=== PATIENT | male | born 1945 | race Caucasian/White ===

== ENCOUNTER 2018-01-23 09:42 | Observation (INO) ==
[2018-01-23] MEDS ORDERED: Vancomycin 1,000 MG VIAL IVPB ONE ×2 (09:59→12:19)
[2018-01-23] MEDS ORDERED: Clindamycin 900 MG/50 ML 900 MG/50 ML IV.SOLN IVPB ONE ×2 (10:03→12:19)
--- NOTE | 2018-01-23 10:07 | Emergency Department Note ---
Disposition Clinical Impression: Cellulitis Qualifiers: Site of cellulitis: extremity Site of cellulitis of extremity: lower extremity Laterality: right Qualified Code(s): L03.115 - Cellulitis of right lower limb Disposition: Admitted As Inpatient Condition: Fair Referrals: NONE,PCP [Primary Care Provider] - Forms: ED Satisfaction Letter, Work/School Release Time of Disposition: 10:10 (Dr Ascencio) Skin/Abscess/FB HPI Chief complaint: ED General Medical Stated complaint: redness to lt leg Time Seen by Provider: 01/23/18 09:50 Source: patient Mode of arrival: ambulatory Limitations: no limitations Nursing Notes Reviewed: Yes Vital Signs Reviewed: Yes Pt Subjective Complaint: rash Onset (ago): day(s) (2) Tetanus Up to Date: yes Location: RLE Severity: severe Severity scale (1-10): 7 Quality: aching Consistency: constant, Worsening Improves with: none Worsens with: none Context: other (The patient is currently staying in [facility] from [place] for the summer. He states that he has been relatively active in the last couple of days walking around with no issues. He noted increasing redness from the anterior medial aspect of the upper leg and gradually spread this morning. The area is red and slightly painful to touch. Patient denies any associated fever, calf pain, groin pain, back pain, chills, shortness of breath, palpitations or dizziness. There is no associated mental status changes according to . He denies any similar complaints the past or history of DVT and currently not on any anticoagulants. The patient denies any recent long travel or traumatic injury to the right lower extremity.) Associated symptoms: Reports: shortness of breath. Denies: rigors, itching, nausea, vomiting, malaise, arthralgias, cough Treatments prior to arrival: none Home Medications Medication Instructions Recorded Confirmed Aspirin [Lo-Dose Aspirin EC] 81 mg PO DAILY 01/23/18 01/23/18 Gabapentin [Neurontin] 300 mg PO BID 01/23/18 01/23/18 Hydrochlorothiazide [Microzide] 12.5 mg PO DAILY 01/23/18 01/23/18 Lisinopril [Zestril] 20 mg PO DAILY 01/23/18 01/23/18 Metoprolol [Lopressor] 50 mg PO DAILY 01/23/18 01/23/18 Nitroglycerin [Nitrostat] 0.4 mg SL PRN 01/23/18 01/23/18 Pantoprazole Sodium 40 mg PO DAILY 01/23/18 01/23/18 Simvastatin [Zocor] 20 mg PO HS 01/23/18 01/23/18 amLODIPine [Norvasc] 5 mg PO DAILY 01/23/18 01/23/18 Allergies Allergy/AdvReac Type Severity Reaction Status Date / Time No Known Allergies Allergy Verified 01/23/18 09:43 All systems ED: reviewed and negative except as stated. Review of Systems: As Per HPI Past Medical History - Past Medical History Medical history: Reports: hyperlipidemia, hypertension Psychiatric history: Reports: no psych history - Social History Smoking Status: Former smoker Alcohol use: Reports: none Drug use: Reports: none Physical Exam - General Limitations: no limitations General appearance: alert - Head Head exam: atraumatic, normocephalic, normal inspection - Eye Eye exam: Present: normal appearance, PERRL, EOMI - Chest Chest inspection: Present: normal inspection, symmetric chest wall rise - Cardiovascular Cardiovascular exam: Present: regular rate, normal rhythm, normal heart sounds - Abdominal Exam Abdominal exam: Present: soft, Non-Tender. Absent: tenderness, distention, guarding, rebound, rigidity - Expanded Lower Extremity Exam Hip/Pelvis exam: Present: normal inspection, full ROM Upper leg exam: Present: normal inspection, full ROM Knee exam: Present: normal inspection, full ROM. Absent: tenderness, swelling Lower leg exam: Present: full ROM, tenderness, erythema (Stenstrom the anterior and posterior proximal tib-fib area extending into the distal anterior and posterior tib-fib area), Achilles tendon intact, other (Negative Nikolsky sign) . Absent: palpable cord, Homans' sign Ankle exam: Present: normal inspection, full ROM Foot/toe exam: Present: normal inspection, full ROM Neurovascular/Tendon exam: Absent: motor deficit, sensory deficit, tendon deficit - Back Exam Back exam: Present: normal inspection, full ROM. Absent: tenderness - Neurological Exam Neurological exam: Present: alert, oriented X3, CN II-XII intact, other ( Patient is using a 4 wheeled walker) - Psychiatric Psychiatric exam: Present: normal affect, normal mood - Skin Skin exam: Present: warm, dry, intact, rash - Expanded Skin Exam Type of lesion: Present: rash Distribution: RLE Description: Present: tenderness, erythematous, indurated. Absent: vesicular, blisters, bullous, petechial, purpuric, crusting, fluctuant Course Vital Signs Temperature 97.8 F 01/23/18 09:44 Pulse Rate 71 01/23/18 09:44 Respiratory Rate 18 01/23/18 09:44 Blood Pressure 126/68 01/23/18 09:44 O2 Sat by Pulse Oximetry 97 01/23/18 09:44 Temperature 97.8 F 01/23/18 09:44 Pulse Rate 73 01/23/18 11:00 Respiratory Rate 18 01/23/18 11:00 Blood Pressure 130/86 01/23/18 11:00 O2 Sat by Pulse Oximetry 97 01/23/18 11:00 Oxygen Delivery Oxygen Delivery Room Air Skin/Abscess/Foreign Body - MDM Narrative Medical decision making narrative: No clinical suspicion for acute necrotizing fasciitis or DVT of the right lower extremity. The patient might have progressive cellulitis which will be treated with IV clindamycin and vancomycin. Patient is amenable for inpatient admission for 24 hours or IV antibiotic infusion and observation. - Differential Diagnosis Likely: abscess of skin or subcutaneous tissue, viral exanthem, cellulitis - Medical Records Medical records reviewed: Yes I reviewed the patient's medical records. - Lab Data Lab results reviewed: Yes I reviewed the patient's lab results. Result diagrams: 01/23/18 10:35 01/23/18 10:35 Lab Results 01/23/18 01/23/18 Range/Units 10:35 10:35 WBC 14.6 H (4.3-11.1) K/mcL RBC 4.11 L (4.19-5.50) M/mcL Hgb 12.4 L (12.9-16.9) g/dL Hct 36.8 L (37.5-50.1) % MCV 89.5 (83.0-100.0) fL MCH 30.2 (28.0-33.3) pg MCHC 33.7 (31.6-35.5) g/dL RDW 13.2 (11.5-14.5) % Plt Count 251 (140-400) K/mcL MPV 10.1 (9.4-12.4) fL Immature Gran % 0.7 (0-4) % Seg Neutrophils % 72.1 % Lymphocytes % 15.1 % Monocytes % 11.6 % Eosinophils % 0.2 % Basophils % 0.3 % Neutrophils # 10.5 H (1.6-8.9) K/mcL Lymphocytes # 2.2 (0.6-4.6) K/mcL Monocytes # 1.7 H (0.0-1.3) K/mcL Eosinophils # 0.0 (0.0-0.6) K/mcL Basophils # 0.0 (0.0-0.2) K/mcL Sodium 135 L (136-145) mEq/L Potassium 3.6 (3.5-5.1) mEq/L Chloride 97 L (98-107) mEq/L Carbon Dioxide 25 (23-29) mEq/L BUN 38 H (8-23) mg/dL Creatinine 1.70 H (0.70-1.30) mg/dL Est GFR ( Amer) 48 L (> 60) Est GFR (Non-Af Amer) 40 L (> 60) BUN/Creatinine Ratio 22 (6-26) Glucose 158 H (70-105) mg/dL Calculated Osmolality 292 (280-300) Calcium 9.2 (8.6-10.3) mg/dL Total Bilirubin 1.0 (0.3-1.0) mg/dL Direct Bilirubin 0.2 (0.0-0.2) mg/dL Indirect Bilirubin 0.8 (0.0-1.2) mg/dL AST 28 (13-39) Units/L ALT 24 (7-52) Units/L Alkaline Phosphatase 58 (34-104) Units/L Serum Total Protein 7.6 (6.4-8.9) g/dL Albumin 3.7 (3.5-5.7) g/dL Globulin 3.9 H (2.4-3.5) g/dL Albumin/Globulin Ratio 0.9 L (1.1-2.2) - Radiology Data Radiology results reviewed: Yes I reviewed the patient's radiology results.
[2018-01-23 10:48] LABS: Basophils % 0.3 %; Eosinophils % 0.2 %; Hematocrit 36.8 % (37.5-50.1); Hemoglobin 12.4 g/dL (12.9-16.9); Immature Granulocytes % 0.7 % (0-4); Lymphocytes # 2.2 K/mcL (0.6-4.6); Lymphocytes % 15.1 %; Mean Corpuscular HGB Conc 33.7 g/dL (31.6-35.5); Mean Corpuscular Hemoglobin 30.2 pg (28.0-33.3); Mean Corpuscular Volume 89.5 fL (83.0-100.0); Mean Platelet Volume 10.1 fL (9.4-12.4); Monocytes # 1.7 K/mcL (0.0-1.3); Monocytes % 11.6 %; Platelet Count 251 K/mcL (140-400); Red Blood Count 4.11 M/mcL (4.19-5.50); Red Cell Distribution Width 13.2 % (11.5-14.5); Segmented Neutrophils % 72.1 %
[2018-01-23 10:49] LABS: Neutrophils # 10.5 K/mcL (1.6-8.9)
[2018-01-23 11:04] LABS: Albumin 3.7 g/dL (3.5-5.7); Albumin/Globulin Ratio 0.9 (1.1-2.2); Bilirubin,Direct 0.2 mg/dL (0.0-0.2); Bilirubin,Indirect 0.8 mg/dL (0.0-1.2); Calcium 9.2 mg/dL (8.6-10.3); Globulin 3.9 g/dL (2.4-3.5); Potassium 3.6 mEq/L (3.5-5.1); Total Protein 7.6 g/dL (6.4-8.9)
[2018-01-23] MEDS ORDERED: 0.9 % Sodium Chloride 1,000 ML IVC SCH ×2 (11:15→12:19)
[2018-01-23] MEDS ORDERED: *HR* HYDROcodone/Acet 5/325 mg TABLET PO PRN (12:19)
[2018-01-23] MEDS ORDERED: Acetaminophen 325 MG TABLET PO PRN (12:19)
[2018-01-23] MEDS ORDERED: Naloxone 0.4 MG/ML INJ IVP PRN (12:19)
[2018-01-23] MEDS ORDERED: Ondansetron 4 MG/2 ML VIAL IVP PRN (12:19)
--- NOTE | 2018-01-23 15:46 | Internal Med History&Physical ---
Date of Encounter: 01/23/18 Time of Encounter: 15:00 Assessment and Plan (1) Cellulitis Current visit: Yes Status: Acute He was given clindamycin and vancomycin in emergency room. Will start Ancef 1 g IV every 8 hours with lactobacillus. Qualifiers: Site of cellulitis: extremity Site of cellulitis of extremity: lower extremity Laterality: right Qualified Code(s): L03.115 - Cellulitis of right lower limb (2) Anemia Current visit: Yes Status: Acute Order anemia testing in a.m. Hold aspirin. Qualifiers: Anemia type: unspecified type Qualified Code(s): D64.9 - Anemia, unspecified (3) Hypertension Current visit: Yes Status: Chronic Hold lisinopril and HCTZ. Continue amlodipine and metoprolol for now and monitor blood pressure. Qualifiers: Hypertension type: essential hypertension Qualified Code(s): I10 - Essential (primary) hypertension (4) Azotemia Current visit: Yes Status: Acute Duration unknown. Will hold HCTZ and lisinopril. Start IV fluids and monitor renal indices. (5) Hyperlipidemia Current visit: Yes Status: Acute Check lipid profile in a.m. Qualifiers: Hyperlipidemia type: unspecified Qualified Code(s): E78.5 - Hyperlipidemia , unspecified (6) DM type 2 (diabetes mellitus, type 2) Current visit: Yes Status: Acute Check hemoglobin A1c in a.m. Qualifiers: Diabetes mellitus custodial insulin use: without ferry terminal supervisor use Diabetes mellitus complication status: without complication Qualified Code(s): E11.9 - Type 2 diabetes mellitus without complications (7) Diabetic neuropathy Current visit: Yes Status: Chronic Check hemoglobin A1c in a.m. Continue gabapentin. Qualifiers: Diabetes mellitus type: type 2 Diabetes mellitus complication detail: with other neurological complication Qualified Code(s): E11.49 - Type 2 diabetes mellitus with other diabetic neurological complication Internal Medicine - H&P: HPI Chief complaint: Right leg redness Admitted From: Emergency Dept Plans for Post Hospital Care: Home History of present illness: Mr. Watt is a 72 year old male who came to emergency room stating he had onset of "soreness" in his right lower leg the previous day without visible changes. On awakening today he noticed redness in the leg with increased soreness. He came to emergency room and was evaluated and felt to have cellulitis. He was admitted to [facility] floor for ongoing care needs. He denies known trauma to his legs. He does not recall any insect bites. He denies fevers or chills. No other parts of his body have similar erythema and soreness. Past Med Surg Social Fam HX - Past Medical History Medical history: arthritis, hyperlipidemia, hypertension Psychiatric history: no psych history - Past Surgical History Additional surgical history: rt bicep tendon surg - Social History Smoking Status: Former smoker Alcohol use: none Drug use: none - Family History Mother Living Status: Hx Family Cardiac Disorders: Yes Internal Medicine - H&P: Meds Aspirin [Lo-Dose Aspirin EC] 81 mg PO DAILY 01/23/18 [History] Gabapentin [Neurontin] 300 mg PO BID 01/23/18 [History] Hydrochlorothiazide [Microzide] 12.5 mg PO DAILY 01/23/18 [History] Lisinopril [Zestril] 20 mg PO DAILY 01/23/18 [History] Metoprolol [Lopressor] 50 mg PO DAILY 01/23/18 [History] Nitroglycerin [Nitrostat] 0.4 mg SL PRN 01/23/18 [History] Pantoprazole Sodium 40 mg PO DAILY 01/23/18 [History] Simvastatin [Zocor] 20 mg PO HS 01/23/18 [History] amLODIPine [Norvasc] 5 mg PO DAILY 01/23/18 [History] 3 Allergy/AdvReac Type Severity Reaction Status Date / Time No Known Allergies Allergy Verified 01/23/18 09:43 All Systems PM: A 10-system review of systems was performed and is negative for pertinent findings except as documented above in the HPI. Review of systems: Gen.: He states his weight is stable the past few months Cardiovascular: He has history of hypertension but denies IA heart failure angina DVT or pulmonary embolus. He reports exercise stress test 2017 was negative for ischemia. Respiratory: He smoked from age [age] up to one and one half packs per day. He denies known chronic lung disease and does not use home oxygen. GI: Denies disorders of his liver gallbladder or exocrine pancreas : He has occasional BPH symptoms. He denies disorders of his kidney bladder or prostate otherwise Neurologic: He reports neuropathy in his feet possibly secondary to diabetes. He denies large distribution strokes or seizures. Endocrine: He has hyperlipidemia. He has history of DM 2 but no longer takes medication for this. He denies known thyroid disease. Hematology/oncology: He denies blood disorders or cancers. He was unaware he had anemia on labs in emergency room. Psychiatric: Denies anxiety depression or other mental health issues Musko skeletal: He has DJD. He has had left biceps tendon repair. He denies other bone joint or muscle disorders. - Constitutional Vitals: Temp Pulse Resp BP Pulse Ox 99.6 F 67 14 117/70 95 01/23/18 13:00 01/23/18 13:00 01/23/18 13:00 01/23/18 13:00 01/23/18 13:00 Exam: Gen.: He is a well-developed well-nourished male lying in bed and appears in no acute distress HEENT: Head is atraumatic and normocephalic. Eyes: EOMI. There is no scleral icterus. Mouth: Mucosa is moist. Neck: Supple and nontender. There is no thyromegaly or adenopathy noted. Heart: Regular without murmurs gallops or ectopics Lungs: No wheezes or crackles are heard. Abdomen: Soft and nontender. No masses or guarding are noted. Extremities: The right lower leg shows diffuse erythema from the lower patella area to the distal right lower leg just above the ankle. There is trace pitting edema present. The leg is slightly enlarged compared to the left leg and warmer to touch. No lymphangitic streaking is seen. The erythema has distinct borders. No puncture or bite reddy are seen. The left leg is unremarkable. Neurologic: Mental status: He is talkative and a good historian. Cranial nerves : Smile is symmetric. Forehead wrinkles bilaterally. Tongue protrudes midline. EOMI. Motor: There is no pronator drift. Cerebellar: Finger to nose is intact bilaterally. Skin: Warm and dry with right leg erythema as described above. Internal Med - H&P Results - Labs CBC & Chem 7: 01/23/18 10:35 01/23/18 10:35
[2018-01-23] MEDS: 0.45 % Sodium Chloride w/KCl 20 MEQ/1,000 ML MLS IVC SCH (16:37)
[2018-01-23] MEDS: ceFAZolin 1,000 MG in Water for inj. (sterile) 20 ML 10 ML IVP SCH (16:41)
[2018-01-23] MEDS: Lactobacillus 1 EACH CAP.SPRINK PO SCH (21:25)
[2018-01-23] MEDS: Gabapentin 300 MG CAPSULE PO SCH (21:25)
[2018-01-24] MEDS: ceFAZolin 1,000 MG in Water for inj. (sterile) 20 ML 10 ML IVP SCH ×3 (00:21→17:13)
[2018-01-24] MEDS: 0.45 % Sodium Chloride w/KCl 20 MEQ/1,000 ML MLS IVC SCH ×3 (03:23→23:01)
[2018-01-24 06:07] LABS: Basophils # 0.1 K/mcL (0.0-0.2); Basophils % 0.4 %; Eosinophils # 0.1 K/mcL (0.0-0.6); Eosinophils % 0.6 %; Hematocrit 32.8 % (37.5-50.1); Hemoglobin 11.1 g/dL (12.9-16.9); Immature Granulocytes % 0.7 % (0-4); Lymphocytes # 1.9 K/mcL (0.6-4.6); Lymphocytes % 15.8 %; Mean Corpuscular HGB Conc 33.8 g/dL (31.6-35.5); Mean Corpuscular Hemoglobin 30.5 pg (28.0-33.3); Mean Corpuscular Volume 90.1 fL (83.0-100.0); Monocytes # 1.6 K/mcL (0.0-1.3); Neutrophils # 8.5 K/mcL (1.6-8.9); Platelet Count 226 K/mcL (140-400); Red Blood Count 3.64 M/mcL (4.19-5.50); Red Cell Distribution Width 13.1 % (11.5-14.5); Segmented Neutrophils % 69.5 %
[2018-01-24 06:30] LABS: BUN/Creatinine Ratio 20 (6-26); Blood Urea Nitrogen 27 mg/dL (8-23); Calcium 8.5 mg/dL (8.6-10.3); Carbon Dioxide 24 mEq/L (23-29); Chloride 103 mEq/L (98-107); Glucose 144 mg/dL (70-105); Magnesium 1.9 mg/dL (1.6-2.6); Osmolality,Calculated 290 (280-300); Potassium 3.8 mEq/L (3.5-5.1); Sodium 136 mEq/L (136-145); eGFR For African Americans > 60 (> 60); eGFR For Non-African Americans 53 (> 60)
[2018-01-24 06:39] LABS: Thyroid Stimulating Hormone 0.461 mcIU/mL (0.340-5.600)
[2018-01-24] MEDS: Lisinopril 20 MG TABLET PO SCH (08:27)
[2018-01-24] MEDS: Gabapentin 300 MG CAPSULE PO SCH ×2 (08:28→21:27)
[2018-01-24] MEDS: Lactobacillus 1 EACH CAP.SPRINK PO SCH ×2 (08:28→21:27)
[2018-01-24] MEDS ORDERED: amLODIPine 5 MG TABLET PO SCH (09:00)
[2018-01-24] MEDS ORDERED: Aspirin Enteric Coated 81 MG Tablet PO SCH (09:00)
[2018-01-24] MEDS ORDERED: hydroCHLOROthiazide 25 MG TABLET PO SCH (09:00)
[2018-01-24 09:34] LABS: % Iron Saturation 7 % (20-55); Iron 20 mcg/dL (65-175); Transferrin 219 mg/dL (203-362)
[2018-01-24 09:52] LABS: Ferritin 82 ng/mL (20-250)
--- NOTE | 2018-01-24 10:53 | Internal Med Progress Note ---
Date of Encounter: 01/24/18 Time of Encounter: 10:45 - Assessment and plan (1) Cellulitis Current Visit: Yes Status: Acute Assessment and plan: January 24. Continue Ancef and lactobacillus. Recheck labs in a.m. Qualifiers: Site of cellulitis: extremity Site of cellulitis of extremity: lower extremity Laterality: right Qualified Code(s): L03.115 - Cellulitis of right lower limb (2) Anemia Current Visit: Yes Status: Acute Assessment and plan: January 24. Hemoglobin decreased to 11.1. Anemia testing shows iron 20, transferrin saturation 7%, transferrin 219, ferritin 82, B12 1174, and folate 17.0. Start ferrous sulfate with vitamin C in a.m. Qualifiers: Anemia type: unspecified type Qualified Code(s): D64.9 - Anemia, unspecified (3) Hypertension Current Visit: Yes Status: Chronic Assessment and plan: January 24. Blood pressure remains borderline low. Will discontinue Norvasc and remain off lisinopril and HCTZ. Continue metoprolol. Qualifiers: Hypertension type: essential hypertension Qualified Code(s): I10 - Essential (primary) hypertension (4) Azotemia Current Visit: Yes Status: Acute Assessment and plan: January 24. BUN and creatinine improved to 27 and 1.32 respectively with estimated GFR 53. Recheck labs in a.m. (5) Hyperlipidemia Current Visit: Yes Status: Acute Qualifiers: Hyperlipidemia type: unspecified Qualified Code(s): E78.5 - Hyperlipidemia , unspecified (6) DM type 2 (diabetes mellitus, type 2) Current Visit: Yes Status: Acute Assessment and plan: January 24. Hemoglobin A1c pending. Qualifiers: Diabetes mellitus terminal worker insulin use: without halfway use Diabetes mellitus complication status: without complication Qualified Code(s): E11.9 - Type 2 diabetes mellitus without complications (7) Diabetic neuropathy Current Visit: Yes Status: Chronic Assessment and plan: January 24. Continue gabapentin Qualifiers: Diabetes mellitus type: type 2 Diabetes mellitus complication detail: with other neurological complication Qualified Code(s): E11.49 - Type 2 diabetes mellitus with other diabetic neurological complication - Subjective Interval history: January 24. He has no new complaints and feels better. - Constitutional Vitals: Temp Pulse Resp BP Pulse Ox 98.4 F 63 16 119/57 97 01/24/18 06:45 01/24/18 08:25 01/24/18 06:45 01/24/18 08:25 01/24/18 06:45 Exam: He is resting comfortably on the side of the bed and appears in no acute distress. His affect is cheerful. I reviewed his medications and lab results. There has been no expansion of the borders of erythema of his right lower leg. The intensity of redness is unchanged from yesterday. Internal Medicine: Result - Labs CBC & Chem 7: 01/24/18 05:50 01/24/18 05:50 Labs: Short CBC 01/24/18 Range/Units 05:50 WBC 12.2 H (4.3-11.1) K/mcL Hgb 11.1 L (12.9-16.9) g/dL Hct 32.8 L (37.5-50.1) % Plt Count 226 (140-400) K/mcL Neutrophils # 8.5 (1.6-8.9) K/mcL BMP 01/24/18 05:50 Sodium 136 Potassium 3.8 Chloride 103 Carbon Dioxide 24 BUN 27 H Creatinine 1.32 H Glucose 144 H Calcium 8.5 L Consult Discharge Plan - Plan Referrals: NONE,PCP [Primary Care Provider] - 1 week
[2018-01-24 13:45] LABS: Chol/HDL Ratio 3.4 (0-4.9)
[2018-01-25 06:47] LABS: Estimated Average Glucose 174 mg/dl; Hemoglobin A1C 7.7 %
[2018-01-25 07:15] VITALS: BP 120/60
[2018-01-25 07:53] LABS: Basophils # 0.1 K/mcL (0.0-0.2); Basophils % 0.4 %; Eosinophils # 0.1 K/mcL (0.0-0.6); Eosinophils % 0.7 %; Hematocrit 32.8 % (37.5-50.1); Immature Granulocytes % 1.1 % (0-4); Lymphocytes % 17.4 %; Mean Corpuscular HGB Conc 33.5 g/dL (31.6-35.5); Mean Corpuscular Hemoglobin 30.2 pg (28.0-33.3); Mean Corpuscular Volume 90.1 fL (83.0-100.0); Mean Platelet Volume 9.8 fL (9.4-12.4); Monocytes # 1.6 K/mcL (0.0-1.3); Monocytes % 11.7 %; Neutrophils # 9.3 K/mcL (1.6-8.9); Platelet Count 244 K/mcL (140-400); Red Blood Count 3.64 M/mcL (4.19-5.50); Red Cell Distribution Width 13.2 % (11.5-14.5); Segmented Neutrophils % 68.7 %
[2018-01-25] MEDS: ceFAZolin 1,000 MG in Water for inj. (sterile) 20 ML 10 ML IVP SCH ×2 (08:01)
[2018-01-25] MEDS: Ascorbic Acid 500 MG TABLET PO SCH ×2 (08:02→08:05)
[2018-01-25] MEDS: Gabapentin 300 MG CAPSULE PO SCH (08:02)
[2018-01-25] MEDS: Lactobacillus 1 EACH CAP.SPRINK PO SCH (08:03)
[2018-01-25] MEDS: Lisinopril 20 MG TABLET PO SCH (08:07)
[2018-01-25 08:17] LABS: Lymphocytes # 2.4 K/mcL (0.6-4.6)
[2018-01-25 08:21] LABS: BUN/Creatinine Ratio 18 (6-26); Blood Urea Nitrogen 22 mg/dL (8-23); Calcium 8.7 mg/dL (8.6-10.3); Carbon Dioxide 22 mEq/L (23-29); Chloride 105 mEq/L (98-107); Glucose 138 mg/dL (70-105); Osmolality,Calculated 288 (280-300); Potassium 4.3 mEq/L (3.5-5.1); Sodium 136 mEq/L (136-145); eGFR For African Americans > 60 (> 60); eGFR For Non-African Americans 60 (> 60)
--- NOTE | 2018-01-25 10:07 | Discharge Summary ---
Date of Encounter: 01/25/18 Time of Encounter: 09:50 - Discharge Diagnosis (1) Cellulitis Priority: Primary Status: Acute Qualifiers: Site of cellulitis: extremity Site of cellulitis of extremity: lower extremity Laterality: right Qualified Code(s): L03.115 - Cellulitis of right lower limb (2) Anemia Priority: Secondary Status: Acute Qualifiers: Anemia type: unspecified type Qualified Code(s): D64.9 - Anemia, unspecified (3) Hypertension Priority: Secondary Status: Chronic Qualifiers: Hypertension type: essential hypertension Qualified Code(s): I10 - Essential (primary) hypertension (4) Azotemia Priority: Secondary Status: Acute (5) Hyperlipidemia Priority: Secondary Status: Acute Qualifiers: Hyperlipidemia type: unspecified Qualified Code(s): E78.5 - Hyperlipidemia , unspecified (6) DM type 2 (diabetes mellitus, type 2) Priority: Secondary Status: Acute Qualifiers: Diabetes mellitus intermodal customer service insulin use: without intermodal customer service use Diabetes mellitus complication status: without complication Qualified Code(s): E11.9 - Type 2 diabetes mellitus without complications (7) Diabetic neuropathy Priority: Secondary Status: Chronic Qualifiers: Diabetes mellitus type: type 2 Diabetes mellitus complication detail: with other neurological complication Qualified Code(s): E11.49 - Type 2 diabetes mellitus with other diabetic neurological complication Hospital course: Mr. Watt is a 72 year old male who came to emergency room stating he had onset of "soreness" in his right lower leg the previous day without visible changes. On awakening today he noticed redness in the leg with increased soreness. He came to emergency room and was evaluated and felt to have cellulitis. He was admitted to [facility] for ongoing care needs. Initial orders were written by the emergency room physician. I saw him on January 23 and performed a history and physical. He was given clindamycin and vancomycin in emergency room. I changed him to IV Ancef. Lactobacillus was given. There was no expansion of the borders of erythema after I saw him. There was persistent significant erythema and warmth to the leg. WBC improved slightly to 13.5 by day of discharge with 68.7% segs. He remained afebrile. He will continue with antibiotic and probiotic for 10 days after discharge. His PCP in [place] can reevaluate determine if additional antibiotics or other intervention is needed. Lisinopril and HCTZ were held. There was significant improvement in azotemia with BUN and creatinine decreasing to 22 and 1.19 respectively with estimated GFR 60 by day of discharge. He will remain off these medications at discharge. Amlodipine was discontinued because of hypotension and he will remain off this also. He reported he was not taking metoprolol prior to hospitalization. He will remain off this and his PCP can determine if antihypertensive medication as needed. Hemoglobin A1c returned elevated at 7.7%. He will restart metformin 500 mg twice a day. Anemia testing showed iron 20, transferrin saturation 7%, transferrin 219, ferritin 82, B12 1174, and folate 17.0. He was started on ferrous sulfate with vitamin C. On January 25 he felt stable for discharge home which I felt was reasonable. He will be leaving for his home in [place] in 1 week and follow with his PCP there. - Time Spent with Patient Total time spent providing and/or coordinating discharge services: - Discharge Medications Prescriptions: Ascorbic Acid [Vitamin C] 500 mg PO DAILY #30 tablet cephALEXin [Keflex] 500 mg PO TID #30 capsule Ferrous Sulfate 325 mg PO DAILY #30 tablet Lactobacillus [Culturelle] 1 each PO BID #20 cap.sprink metFORMIN [Glucophage] 500 mg PO BIDWM 365 Days tablet Home Medications: Gabapentin [Neurontin] 300 mg PO BID 01/23/18 [History] Nitroglycerin [Nitrostat] 0.4 mg SL PRN 01/23/18 [History] Pantoprazole Sodium 40 mg PO DAILY 01/23/18 [History] Simvastatin [Zocor] 20 mg PO HS 01/23/18 [History] Ascorbic Acid [Vitamin C] 500 mg PO DAILY #30 tablet 01/25/18 [Rx] Ferrous Sulfate 325 mg PO DAILY #30 tablet 01/25/18 [Rx] Lactobacillus [Culturelle] 1 each PO BID #20 cap.sprink 01/25/18 [Rx] cephALEXin [Keflex] 500 mg PO TID #30 capsule 01/25/18 [Rx] metFORMIN [Glucophage] 500 mg PO BIDWM 365 Days tablet 01/25/18 [Rx] Allergies/Adverse Reactions: 3 Allergy/AdvReac Type Severity Reaction Status Date / Time No Known Allergies Allergy Verified 01/23/18 09:43 Date of admission: 01/23/18 11:53 Primary care physician: PCP NONE - Constitutional Vitals: Temp Pulse Resp BP Pulse Ox 99.0 F 54 15 120/60 95 01/25/18 07:13 01/25/18 07:13 01/25/18 07:13 01/25/18 07:13 01/25/18 07:13 - Patient Status Disposition: Home, Self-Care Condition: Fair Overall status at discharge: patient is progressing back to baseline - Discharge Instructions Follow Up With: NONE,PCP [Primary Care Provider] - 1 week - Diet and Activity Activity: resume usual activities as tolerated Diet: diabetic diet
== END 2018-01-25 11:40 | disposition home or self-care (01) ==
LOC: INPPIK 09:42 → EMEROOPIK 09:42 → INPPIK 12:18
PROVIDERS: ADMIT Internal Medicine; ATTEND Internal Medicine